=== PATIENT | male | born 1955 | race Caucasian/White ===

== ENCOUNTER 2021-06-27 07:43 | Day surgery (SDC) | payer BC, SELFPAY ==
--- NOTE | 2021-06-23 11:36 | HO.ANESPROP2 ---
Documented by User: Brittney Ruff NP 06/23/21 11:37 HPI - Anesthesia Eval Consult details Narrative: 65yo M for Colonoscopy [facility] Past Medical History Medical History Elevated cholesterol Surgical History Surgical History History of detached retina repair Hx of bilateral cataract extraction Hx of colonoscopy Social History Social History Advance Directives: No Advance Directives Information Provided: Yes Meds Allergies Allergy/AdvReac Type Severity Reaction Status Date / Time No Known Allergies Allergy Unverified 06/21/21 09:49 Home Medications Medication Instructions Recorded Confirmed Last Taken Type simvastatin 20 mg tablet 20 mg PO DAILY 06/21/21 06/21/21 Unknown History Exam Exam Date and Time: June 23, 2021 1136 Assessment and Plan Assessment Anesthesia Assessment: Chart Reviewed Documented by User: Chidi Myers MD 06/27/21 07:58 [facility] Past Medical History Medical History Elevated cholesterol Family History Family history of problems with anesthesia: No Surgical History Surgical History History of detached retina repair Hx of bilateral cataract extraction Hx of colonoscopy History of Problems with Anesthesia: No Social History Social History Advance Directives: No Advance Directives Information Provided: Yes Meds Allergies Allergy/AdvReac Type Severity Reaction Status Date / Time No Known Allergies Allergy Unverified 06/21/21 09:49 Home Medications Medication Instructions Recorded Confirmed Last Taken Type simvastatin 20 mg tablet 20 mg PO DAILY 06/21/21 06/21/21 Unknown History Exam Airway Mallampati Class: II TM Dist: >3cm Neck ROM: Full Loose/Missing/Broken Teeth: No Assessment and Plan Assessment Anesthesia Assessment: Anesthesia Plan Discussed Final Anesthetic Review Family History of Problems with Anesthesia: No History of Problems with Anesthesia: No NPO: Yes ASA Class: II Final Preanesthetic Review: No Changes in Pt Med Stat, Meds/Allgs Chart Reviewed, Consent Obtained/Reviewed and Anes Risks/Benef Reviewed Patient Risk: Low Procedure Risk: Low Anesthetic Plan Anesthetic Plan: MAC: Disposition: Standard PACU
[2021-06-23 14:19] VITALS: BMI 31.5
[2021-06-27 07:52] VITALS: BP 137/87; PULSE 80; RESP 18; TEMP 36.4; O2SAT 97
[2021-06-27] MEDS: Lactated Ringers 1,000 ML 100 ML IVCONT (08:10)
--- NOTE | 2021-06-27 08:54 | MHC.SHP ---
Pre-Procedural Eval Section A Date of Service: 06/27/21 The patient is an INPATIENT: No Changes since office visit: No Cold of Flu in the past 2 weeks, No New Medical Problems, No Changes in Medication and No Patient answered all questions The History & Physical has been completed within 30 days and I have reviewed it.: Yes Section B Chief Complaint: screening,hx of colonic polyps Allergies: Allergies Allergy/AdvReac Type Severity Reaction Status Date / Time No Known Allergies Allergy Verified 06/27/21 08:26 Plan I have reviewed the history and physical and performed a pertinent physical examination on my patient. No changes have occurred unless specified.
[2021-06-27 09:31] VITALS: BP 92/60; PULSE 72; RESP 16; TEMP 36.5; O2SAT 97
--- NOTE | 2021-06-27 09:33 | P.BOP_ITS ---
Brief Operative Note Date of Service: 06/27/21 Pre-op diagnosis: screening Post-op diagnosis: same (colon polyp) Procedure: colonoscopy Surgeon: Jose Mota Anesthesia: MAC Was an Manager Banquet used for this Procedure?: No Estimated blood loss (mL): 0 Pathology: other (polyp x1) Condition: stable Disposition: PACU
--- NOTE | 2021-06-27 09:39 | PC.NURSE ---
sitting up in bed hob 90 degrees, drinking edith melissa. no complaints no pain or nausea.
[2021-06-27 09:46] VITALS: BP 113/76; PULSE 71; RESP 16; TEMP 36.5; O2SAT 95
--- NOTE | 2021-06-27 09:46 | OP_ITS ---
SURGEON: Jose Mota MD INDICATIONS: Colon cancer screening and prior history of adenomatous colon polyps. PREOPERATIVE DIAGNOSIS: POSTOPERATIVE DIAGNOSIS: PROCEDURE PERFORMED: Colonoscopy to the terminal ileum with biopsy. ESTIMATED BLOOD LOSS: COMPLICATIONS: ANESTHESIA: ASSISTANTS: SPECIMENS: MEDICATIONS: Monitored anesthesia care. DESCRIPTION OF PROCEDURE: History and physical performed. The risks and benefits of the procedure were explained to the patient. Informed consent was obtained. The patient was placed in the left lateral decubitus position. A digital rectal exam was performed and was found to be normal. The Olympus pediatric video colonoscope was introduced into the rectum and advanced to the cecum without difficulty. The cecum was identified by transillumination, palpation, and identification of ileocecal valve. Examination was performed and the scope was removed. He tolerated the procedure well and was taken to recovery area in stable condition. FINDINGS: The terminal ileum was examined and appeared normal. The visualized colonic mucosa was within normal limits without evidence of masses or ulcers. A single polyp measuring less than 5 mm was identified and removed with biopsy forceps at 80 cm. No other polyps were identified. Retroflexed examination showed small internal hemorrhoids. There was mild diverticulosis involving the sigmoid. The quality of the prep was fair with some stool coating the mucosa mainly in the right colon and proximal transverse colon. IMPRESSION: Colon polyp. PLAN: Follow up the biopsy results. MD ELIJAH Patel/PRAMODL / [id number] MTDD
== END 2021-06-27 10:34 | disposition home or self-care (01) ==
PROVIDERS: PCP Nurse Practitioner Family; Visit Provider Internal Medicine Gastroenterology
PROC: 0DJD8ZZ Inspection of Lower Intestinal Tract, Via Natural or Artificial Opening Endoscopic (ICD-10-PCS; CPT 45378; principal; 2021-06-27 08:50)
DX: Z12.11 Encounter for screening for malignant neoplasm of colon (principal); Z86.010 Personal history of colon polyps; D12.4 Benign neoplasm of descending colon; K57.30 Diverticulosis of large intestine without perforation or abscess without bleeding; K64.8 Other hemorrhoids; E78.00 Pure hypercholesterolemia, unspecified; Z79.899 Other long term (current) drug therapy
CPT/HCPCS: 45380; 88305